=== PATIENT | female | born 1990 | race Caucasian/White ===

== ENCOUNTER 2020-03-23 11:39 | Emergency (ER) | payer OTHER, SELFPAY ==
[2020-03-23 11:44] VITALS: BP 125/70; PULSE 114; RESP 20; TEMP 36.9; O2SAT 100
--- NOTE | 2020-03-23 11:58 | ED.GENADULT ---
HPI - General Adult General Chief complaint: Dental/Oral Stated complaint: tooth pain Time Seen by Provider: 03/23/20 11:58 Source: patient and RN notes reviewed Mode of arrival: ambulatory Limitations: no limitations History of Present Illness HPI narrative: 29-year-old female presents with complaints of right lower dental pain and jaw swelling for 1 day. Sherrie says symptoms continue to increase throughout the morning. Tylenol last 02:00 this morning without relief. Denies any drainage. No fever. Right lower jaw swelling. No neck swelling. No limitation with speaking or swallowing. Has history of dental caries. Has not seen a dentist recently. No dental trauma. No oral lesions. Exacerbating factors consist of chewing on RT side, eating and drinking cold items. No relieving factors. No dentures or bridges. Tolerating liquids well. The patient reports she have not been diagnosed with COVID-19. The patient reports she is not waiting for the results of a COVID-19 lab test. The patient reports she do not have chills, weakness, or fatigue. The patient reports she do not have a new or worsening cough or shortness of breath. Denies chest pain. The patient reports she do not have any rhinorrhea, congestion, sore throat, loss of taste, nausea, vomiting, abdominal pain, and diarrhea. Denies recent traveling. Denies concerns for COVID-19 or exposures been home with limited outdoor exposure except for essential household needs and return home. At this time, patient is not suspected of having COVID-19. Some parts of this dictation were generated by voice recognition software and may contain typographical and/or grammatical inaccuracies. Related Data Home Medications Medication Instructions Recorded Confirmed nortriptyline 10 mg PO TID 03/23/20 03/23/20 Allergies Allergy/AdvReac Type Severity Reaction Status Date / Time cefaclor Allergy Unknown Unknown Verified 03/23/20 11:43 Review of Systems Review of Systems: Narrative: CONSTITUTIONAL: Denies fever, chills, sweats. EYES: Denies visual changes, redness, discharge. ENT: Denies rhinorrhea, congestion, sore throat, otalgia. Complains of RT lower dental pain and swelling. CARDIOVASCULAR: Denies chest pain, palpitations, edema. RESPIRATORY: Denies dyspnea, wheezing, cough. GASTROINTESTINAL: Denies abdominal pain, nausea, vomiting, diarrhea. SKIN: Denies rash or itching. MUSCULOSKELETAL: Denies acute back pain, joint pain, or myalgia. NEUROLOGIC: Denies numbness or focal weakness. PSYCHIATRIC: Denies anxiety or depression. All systems reviewed & are unremarkable except as noted in HPI and below. [facility] Past Medical History Medical History (Updated 03/24/20 @ 00:00 by Kalyani Manley) Brain aneurysm December 26, 2018 delivery delivered Surgical History Surgical History (Updated 03/23/20 @ 12:17 by KAYKAY De Leon) H/O section X3 History of adenoidectomy History of brain surgery Initial brain surgery December 2018, second surgery to replace call April 2019 History of tonsillectomy Family History Family History (Updated 03/23/20 @ 12:18 by KAYKAY De Leon) Father Cystic fibrosis Mother Hypertension Social History Social History (Updated 03/23/20 @ 12:19 by KAYKAY De Leon) Smoking packs per day: 0.5 Smoking cigarettes per day: 10.0 Years smoked: 11 Smoking pack-years: 5.50 Smoking status: Current every day smoker Tobacco type: cigarettes Second hand tobacco smoke exposure: Yes Alcohol intake: current Substance use: never Living arrangements: with family Additional living arrangements comments: spouse and kids Occupation/Education: unemployed Gender identity (if verbalized by the patient): Female Sexual Orientation (if Verbalized by the Patient): Straight or Heterosexual Comments At time of signature, agree with nurse past medical, surgical, social, and family history.
== END 2020-03-23 12:10 | disposition home or self-care (01) ==
PROVIDERS: Emergency Provider Nurse Practitioner Family
DX: K02.9 Dental caries, unspecified (principal); K04.7 Periapical abscess without sinus; F17.210 Nicotine dependence, cigarettes, uncomplicated
CPT/HCPCS: 99213; G0463

== ENCOUNTER 2021-02-17 17:24 | Emergency (ER) | payer OTHER, SELFPAY ==
[2021-02-17 17:29] VITALS: BP 136/79; PULSE 121; RESP 16; TEMP 37.1; O2SAT 100
--- NOTE | 2021-02-17 17:49 | ED.SKABFB ---
HPI - Skin/Abscess/Foreign Bdy General Chief complaint: Skin/Abscess/Foreign Body Stated complaint: left leg pain Time Seen by Provider: 02/17/21 17:43 Source: patient and RN notes reviewed Mode of arrival: ambulatory Limitations: no limitations History of Present Illness HPI narrative: Patient presents today complaining of two insect bites to her left leg, one in the medial thigh and one in the left popliteal fossa that were sustained 3 days ago. States the insect bites itch, but deny pain. She has tried no interventions prior to arrival. MD complaint: insect bite/sting Related Data Home Medications Medication Instructions Recorded Confirmed nortriptyline 10 mg PO TID 03/23/20 03/23/20 Allergies Allergy/AdvReac Type Severity Reaction Status Date / Time cefaclor Allergy Unknown Unknown Verified 03/23/20 11:43 Review of Systems Review of Systems: CONSTITUTIONAL: Denies body aches, fever, chills, or sweats. EYES: Denies visual changes, redness, or discharge. ENT: Denies rhinorrhea, congestion, sore throat, or otalgia. CARDIOVASCULAR: Denies chest pain, palpitations, or edema. RESPIRATORY: Denies cough or dyspnea. GASTROINTESTINAL: Denies abdominal pain, nausea, vomiting, or diarrhea. GENITOURINARY: Denies dysuria or hematuria. SKIN: Insect bites to the left leg MUSCULOSKELETAL: Denies back pain, joint pain, or myalgia. NEUROLOGIC: Denies headache, numbness, tingling, or weakness. PSYCH: Denies depression or anxiety. [facility] Past Medical History Medical History Brain aneurysm December 26, 2018 delivery delivered Surgical History Surgical History H/O section X3 History of adenoidectomy History of brain surgery Initial brain surgery December 2018, second surgery to replace call April 2019 History of tonsillectomy Family History Family History Father Cystic fibrosis Mother Hypertension Social History Social History Smoking packs per day: 0.5 Smoking cigarettes per day: 10.0 Years smoked: 11 Smoking pack-years: 5.50 Smoking status: Current every day smoker Tobacco type: cigarettes Second hand tobacco smoke exposure: Yes Alcohol intake: current Substance use: never Additional living arrangements comments: spouse and kids Gender identity (if verbalized by the patient): Female Sexual Orientation (if Verbalized by the Patient): Straight or Heterosexual Comments At time of signature, I have reviewed and agree with nursing past medical, surgical, social and family history unless otherwise noted. Please see nursing chart for further information. There is no relevant family history pertinent to the presenting complaint Exam Narrative: GENERAL: Well-appearing, well-nourished, and in no acute distress. HEAD: Normocephalic, atraumatic. EYES: EOMI. No redness or drainage. Conjunctivae normal. ENT: Mucous membranes pink and moist. NECK: Normal AROM. CHEST: No respiratory distress. EXTREMITIES: Normal range of motion. No edema. SKIN: Warm, dry, no rash. Capillary refill normal. Normal skin turgor. 1 cm round scabbed ecchymotic lesion to the medial thigh without induration or erythema, consistent with insect bite. Similar lesion to the the popliteal fossa. No signs of bacterial infection noted. NEURO: No focal deficits. Alert and oriented x3. Gait steady. PSYCH: Normal affect. No signs of depression or anxiety. Course Vital Signs Vital signs: Vital Signs Temperature 98.8 F 02/17/21 17:29 Pulse Rate 121 H 02/17/21 17:29 Respiratory Rate 16 02/17/21 17:29 Blood Pressure 136/79 02/17/21 17:29 Pulse Oximetry 100 02/17/21 17:29 Temperature 98.8 F 02/17/21 17:29 Pulse Rate 121 H 02/17/21 17:29 R
== END 2021-02-17 17:57 | disposition home or self-care (01) ==
PROVIDERS: Emergency Provider Nurse Practitioner
DX: S70.362A Insect bite (nonvenomous), left thigh, initial encounter (principal); W57.XXXA Bitten or stung by nonvenomous insect and other nonvenomous arthropods, initial encounter; F17.210 Nicotine dependence, cigarettes, uncomplicated
CPT/HCPCS: 99211; G0463

== ENCOUNTER 2021-03-14 09:39 | Emergency (ER) | payer OTHER, SELFPAY ==
[2021-03-14 09:46] VITALS: BP 115/67; PULSE 78; RESP 18; TEMP 36.8; O2SAT 100
--- NOTE | 2021-03-14 10:10 | ED.DENTAL ---
HPI - Dental/Oral General Chief complaint: Dental/Oral Stated complaint: Tooth Pain Source: patient and RN notes reviewed Limitations: no limitations History of Present Illness HPI Narrative: The patient, who is a smoker/drinker, presents with jaw pain. Patient states she has a 1 to 2-day recurrence of several month history of dental discomfort, mostly at the right lower molars. This is now associated with right jaw swelling; no fever, hoarseness, trismus, redness. Symptoms are mild, worse with eating Related Data Home Medications Medication Instructions Recorded Confirmed nortriptyline 10 mg PO TID 03/23/20 03/14/21 metoprolol tartrate 50 mg PO DAILY 03/14/21 03/14/21 Allergies Allergy/AdvReac Type Severity Reaction Status Date / Time cefaclor Allergy Unknown Unknown Verified 03/14/21 09:52 Review of Systems Review of Systems: General/Constitutional: No weight loss,fever Eyes: N0: Redness,discharge Ears/Nose/Throat: No: Epistaxis,ear discharge Respiratory: Denies: Hemoptysis Gastrointestinal: No Vomiting, Bleeding-rectal Skin: No Lumps, eruption Neurologic: No Focal Weakness,Sz Hematologic: Denies: Petechiae/Purpura Psychiatric: No: Suicida ideationl All Other Systems: Reviewed and Negative [facility] Past Medical History Medical History Brain aneurysm December 26, 2018 delivery delivered Surgical History Surgical History H/O section X3 History of adenoidectomy History of brain surgery Initial brain surgery December 2018, second surgery to replace call April 2019 History of tonsillectomy Family History Family History Father Cystic fibrosis Mother Hypertension Social History Social History Smoking packs per day: 0.5 Smoking cigarettes per day: 10.0 Years smoked: 11 Smoking pack-years: 5.50 Smoking status: Current every day smoker Tobacco type: cigarettes Second hand tobacco smoke exposure: Yes Alcohol intake: current Substance use: never Additional living arrangements comments: spouse and kids Gender identity (if verbalized by the patient): Female Sexual Orientation (if Verbalized by the Patient): Straight or Heterosexual Comments At time of signature, agree with nursing past medical, surgical, social and family history. There is no relevant family history pertinent to the presenting complaint Exam Narrative: General Appearance: Well appearing, Conjunctiva clear Ears: External ear normal, Auditory canal normal Nose: Normal nose Mouth/Throat: Normal appearing (with mild right lower jaw swelling), Normal lips, MM moist, Uvula midline (scattered dental caries and fillings,, with rare fracture) Neck: Supple, No adenopathy Respiratory: Airway patent, No respiratory distress, Musculoskeletal: Full ROM, Non tender, Normal strength Skin: Warm, Dry, Normal color Neurological: A&O x3, , Normal affect Course Vital Signs Vital signs: Vital Signs Temperature 98.3 F 03/14/21 09:46 Pulse Rate 78 03/14/21 09:46 Respiratory Rate 18 03/14/21 09:46 Blood Pressure 115/67 03/14/21 09:46 Pulse Oximetry 100 03/14/21 09:46 Temperature 98.3 F 03/14/21 09:46 Pulse Rate 78 03/14/21 09:46 Respiratory Rate 18 03/14/21 09:46 Blood Pressure 115/67 03/14/21 09:46 Pulse Oximetry 100 03/14/21 09:46 Discharge Plan Discharge Clinical Impression: Abscess of jaw, Toothache Patient Disposition: Home, Self-Care Condition: Stable Instructions: Antibiotic Form, Dental Abscess (ED) Additional Instructions: Decrease nortriptyline by half/every other dose when using tramadol Prescriptions: New tramadol 50 mg tablet 50 - 75 mg PO BID PRN (Reason: pain) Qty: 20 RF: 0
== END 2021-03-14 10:15 | disposition home or self-care (01) ==
PROVIDERS: Emergency Provider Emergency Medicine
DX: M27.2 Inflammatory conditions of jaws (principal); F17.210 Nicotine dependence, cigarettes, uncomplicated
CPT/HCPCS: 99213; G0463

== ENCOUNTER 2022-01-17 08:33 | Emergency (ER) | payer OTHER, SELFPAY ==
--- NOTE | 2022-01-17 08:38 | ED.DENTAL ---
HPI - Dental/Oral General Chief complaint: Dental/Oral Stated complaint: infected tooth causing facial swelling Time Seen by Provider: 01/17/22 08:38 Source: patient, family and RN notes reviewed History of Present Illness HPI Narrative: Patient is a 31-year-old female who presents the urgent care with complaints of left-sided facial swelling, left upper dental pain. Patient states that the dental pain started a couple days ago and she woke up with the swelling last night to the left side. Patient has not taken anything [id number] for her symptoms. Denies any fevers, chills, nausea or vomiting. Patient is aware that she has poor dental hygiene however her regular dentist will not touch her due to her on a ruptured aneurysm . Patient states that she has yet to find an oral surgeon. No other acute complaints. No acute distress noted. Patient aware of the plan of care. Some parts of this dictation were generated by voice recognition software and may contain typographical and/or grammatical inaccuracies. Related Data Home Medications Medication Instructions Recorded Confirmed nortriptyline 10 mg capsule 10 mg PO TID 03/23/20 03/14/21 metoprolol tartrate 50 mg tablet 50 mg PO DAILY 03/14/21 03/14/21 Allergies Allergy/AdvReac Type Severity Reaction Status Date / Time cefaclor Allergy Unknown Unknown Verified 01/17/22 08:56 Review of Systems Review of Systems: CONSTITUTIONAL: Denies fever, chills, or sweats. EYES: Denies visual changes, redness, or discharge. ENT: Denies rhinorrhea, congestion, sore throat, or otalgia. Reports of left upper dental pain and facial swelling CARDIOVASCULAR: Denies chest pain, palpitations, or edema. RESPIRATORY: Denies cough or dyspnea. GASTROINTESTINAL: Denies abdominal pain, nausea, vomiting, or diarrhea. GENITOURINARY: Denies dysuria or hematuria. SKIN: Denies rash or itching. MUSCULOSKELETAL: Denies back pain, joint pain, or myalgia. NEUROLOGIC: Denies headache, numbness, or weakness. All other systems reviewed are negative, except as documented in HPI. [facility] Past Medical History Medical History Brain aneurysm December 26, 2018 delivery delivered Surgical History Surgical History H/O section X3 History of adenoidectomy History of brain surgery Initial brain surgery December 2018, second surgery to replace call April 2019 History of tonsillectomy Family History Family History Father Cystic fibrosis Mother Hypertension Social History Social History Smoking packs per day: 0.5 Smoking cigarettes per day: 10.0 Years smoked: 11 Smoking pack-years: 5.50 Smoking status: Current every day smoker Tobacco type: cigarettes Second hand tobacco smoke exposure: Yes Alcohol intake: current Substance use: never Additional living arrangements comments: spouse and kids Gender identity (if verbalized by the patient): Female Sexual Orientation (if Verbalized by the Patient): Straight or Heterosexual Comments At the time of my signature, I reviewed and agree with the nursing past medical, surgical, social, and family history. There is no relevant family history pertinent to the patient complaint. Exam Narrative: GENERAL: This is a well-nourished, well-developed patient, in no apparent distress. HEAD: normocephalic, atraumatic. EYES: PERRL. Sclera clear/white. Vision is grossly intact. EARS: External ears normal, auditory canals clear and without drainage, TMs normal without perforation. Hearing grossly intact. NOSE: External nose normal with no obvious nasal discharge, nares without redness, no rhinorrhea. THROAT: Mucous membranes moist, posterior pharynx clear. Moderate postnasal drainage DENTAL: Mul
[2022-01-17 08:39] VITALS: BP 110/68; PULSE 110; RESP 20; TEMP 36.5; O2SAT 98
== END 2022-01-17 08:58 | disposition home or self-care (01) ==
PROVIDERS: Emergency Provider Nurse Practitioner Family
DX: K04.7 Periapical abscess without sinus (principal); F17.210 Nicotine dependence, cigarettes, uncomplicated
CPT/HCPCS: 99213; G0463

== ENCOUNTER 2022-11-01 11:38 | Emergency (ER) | payer OTHER, SELFPAY ==
--- NOTE | 2022-11-01 11:43 | ED.EAR ---
HPI - Ear Problem General Chief complaint: Ear Stated complaint: left ear pain Time Seen by Provider: 11/01/22 11:43 Source: patient Mode of arrival: ambulatory Limitations: no limitations History of Present Illness HPI Narrative: Sherrie is a 32-year-old female patient presenting to the clinic today with complaints of left ear pain x1 day. She reports no known fever or chills. Denies any nasal drainage or sinus pressure. Related Data Home Medications Medication Instructions Recorded Confirmed nortriptyline 10 mg capsule 10 mg PO TID 03/23/20 11/01/22 metoprolol tartrate 50 mg tablet 50 mg PO DAILY 03/14/21 03/14/21 Allergies Allergy/AdvReac Type Severity Reaction Status Date / Time cefaclor Allergy Unknown Unknown Verified 01/17/22 09:24 Review of Systems Review of Systems: Pertinent positives per HPI. Patient denies any fever, chills, rash, headache, visual changes, dizziness, cough, runny nose, sore throat, shortness of breath, chest pain, palpitations, nausea, vomiting, diarrhea, constipation, abdominal pain, or any urinary issues. [facility] Past Medical History Medical History Brain aneurysm December 26, 2018 delivery delivered Surgical History Surgical History H/O section X3 History of adenoidectomy History of brain surgery Initial brain surgery December 2018, second surgery to replace call April 2019 History of tonsillectomy Family History Family History Father Cystic fibrosis Mother Hypertension Social History Social History Smoking packs per day: 0.5 Smoking cigarettes per day: 10.0 Years smoked: 11 Smoking pack-years: 5.50 Smoking status: Current every day smoker Tobacco type: cigarettes Second hand tobacco smoke exposure: Yes Alcohol intake: current Substance use: never Living arrangements: with family Additional living arrangements comments: spouse and kids Occupation/Education: unemployed Gender identity (if verbalized by the patient): Female Sexual Orientation (if Verbalized by the Patient): Straight or Heterosexual Comments At the time of my signature, I reviewed and agree with the nursing past medical, surgical, social, and family history. There is no relevant family history pertinent to the patient complaint. Exam Narrative: General: Well-developed, well nourished, in no apparent distress Head: Normocephalic, atraumatic Eyes: Pupils equally round and reactive to light bilaterally, EOM intact, sclera and conjunctive clear, no discharge, lids normal Ears: Right tMs intact and clear, left TM intact, mild bulging, congested, ear canals clear, no drainage, grossly hearing normal. Nose: Nares patent, clear discharge, no inflammation, no sinus tenderness. Mouth: Oropharynx without lesions or masses, very poor dentition, MMM. Neck: Supple, trachea midline, no enlargement of anterior or posterior cervical nodes, no thyroid masses or goiter palpable. Cardio: Regular rate and rhythm, s1 and s2 normal, no murmur appreciated. Resp: Clear to auscultation bilaterally anteriorly and posteriorly, no rhonchi, rales, wheezing or rubs Course Course Emergency Course: Portions of this record may have been created with voice recognition software. Level of Care: Express Care Visit Vital Signs Vital signs: Vital signs reviewed Medical Decision Making MDM Narrative Medical decision making narrative: At the time of visit patient is resting comfortably on the exam table. I suspect patient has left eustachian tube dysfunction. Prescription for prednisone was sent to the pharmacy and supportive measures were discussed with the patient she voiced understanding discharge instructions and agrees to
[2022-11-01 11:45] VITALS: BP 129/70; PULSE 100; RESP 16; TEMP 36.7; O2SAT 100
== END 2022-11-01 11:56 | disposition home or self-care (01) ==
PROVIDERS: Emergency Provider Nurse Practitioner Family; PCP Family Medicine
DX: H69.82 Other specified disorders of Eustachian tube, left ear (principal); F17.210 Nicotine dependence, cigarettes, uncomplicated
CPT/HCPCS: 99213; G0463

== ENCOUNTER 2023-05-20 10:28 | Emergency (ER) | payer OTHER, SELFPAY ==
[2023-05-20 10:35] VITALS: BP 117/71; PULSE 100; RESP 18; TEMP 37.2; O2SAT 100
--- NOTE | 2023-05-20 11:12 | ED.URI ---
HPI - URI/Sore Throat General Chief Complaint: Upper Respiratory Infection Stated Complaint: Cough/Headache/Body Aches Time Seen by Provider: 05/20/23 11:12 Source: patient, RN notes reviewed and old records reviewed Mode of arrival: ambulatory Limitations: no limitations History of Present Illness HPI Narrative: 32 year old female who presents to [facility] with complaints of cough for about 1 month duration and has been taking OTC cough medications and has left ear pain which started this morning. Patient reports that she has a headache and body aches since last night. Patient reports no known ill exposure.Patient reports no shortness of breath or any chest pain,reports no known fevers. MD elicited complaint: cough and other (left ear pain,headache and body aches) Pertinent past history: other (tobacco use) Onset (ago): month(s) (1 month cough, headache and body aches last night ear pain this morning) Pain scale (0-10): 5 Able to tolerate fluids by mouth: Yes Treatments prior to arrival: other (cough medication) Related Data Home Medications Medication Instructions Recorded Confirmed aspirin 81 mg capsule 81 mg PO DAILY 05/20/23 05/20/23 nortriptyline 10 mg capsule 10 mg PO TID 05/20/23 05/20/23 Allergies Allergy/AdvReac Type Severity Reaction Status Date / Time cefaclor Allergy Unknown Unknown Verified 05/20/23 10:45 Review of Systems Review of Systems: CONSTITUTIONAL: Reports malaise,no chills, sweats, or fever. EYES: Denies visual changes, redness, or discharge. ENT: Reports rhinorrhea, congestion, sinus pain,left otalgia and sore throat. CARDIOVASCULAR: Denies chest pain, palpitations, or edema. RESPIRATORY: Reports cough.? Denies dyspnea. GASTROINTESTINAL: Denies abdominal pain, nausea, vomiting, diarrhea SKIN: Denies rash or itching. MUSCULOSKELETAL: Reports myalgia. NEUROLOGIC: Reports headache. All systems reviewed & are unremarkable except as noted in HPI and below [facility] Past Medical History Medical History Brain aneurysm December 26, 2018 delivery delivered Surgical History Surgical History H/O section X3 History of adenoidectomy History of brain surgery Initial brain surgery December 2018, second surgery to replace call April 2019 History of tonsillectomy Family History Family History Father Cystic fibrosis Mother Hypertension Social History Social History Smoking packs per day: 0.5 Smoking cigarettes per day: 10.0 Years smoked: 11 Smoking pack-years: 5.50 Smoking status: Current every day smoker Tobacco type: cigarettes Second hand tobacco smoke exposure: Yes Alcohol intake: current Substance use: never Living arrangements: with family Additional living arrangements comments: spouse and kids Occupation/Education: unemployed Gender identity (if verbalized by the patient): Female Sexual Orientation (if Verbalized by the Patient): Straight or Heterosexual Comments At time of signature, agree with nursing past medical, surgical, social and family history. There is no relevant family history pertinent to the presenting complaint Exam Narrative: GENERAL: Well-appearing, well-nourished, and in no acute distress. HEAD: Normocephalic EYES: PERRLA, conjunctivae clear ENT: Nares clear, turbinates edematous and erythematous, clear discharge. Mucous membranes moist. TM pearly titus with dull light reflex bilaterally; no tragal tenderness. Oropharynx erythematous without lesions. Tonsils not present andthroat without exudate, no drooling, no hoarseness, no trismus, uvula midline.post nasal drainage. NECK: Supple. No lymphadenopathy CHEST: Clear to auscultation, breath sounds equal. No wheezing, rhonchi
== END 2023-05-20 11:45 | disposition home or self-care (01) ==
PROVIDERS: Emergency Provider Registered Nurse
DX: U07.1 COVID-19 (principal); F17.210 Nicotine dependence, cigarettes, uncomplicated
CPT/HCPCS: 87426; 87804; 99213; C9803; G0463

== ENCOUNTER 2023-07-16 08:37 | Emergency (ER) | payer OTHER, SELFPAY ==
[2023-07-16 08:42] VITALS: BP 127/73; PULSE 92; RESP 14; TEMP 36.6; O2SAT 100
[2023-07-16 08:45] VITALS: BP 127/73; PULSE 92; RESP 14; TEMP 36.6; O2SAT 100
--- NOTE | 2023-07-16 09:26 | ED.URI ---
HPI - URI/Sore Throat General Chief Complaint: Upper Respiratory Infection Stated Complaint: cough/congestion/chest tight History of Present Illness HPI Narrative: Pt is a 32 y/o female, presents to with 24 hour hx of sinus pressure, nasal congestion and a dry cough that is causing burning in the chest. she denies known fevers or chills, she has no chest pain when she is not coughing. she denies orthopnea, lower extremity edema or palpitations, no hx of PE or DVT, she is not taking any OTC medications for symptom relief. She has no known sick contacts or COV 19 exposures. She is not . Related Data Home Medications Medication Instructions Recorded Confirmed nortriptyline 10 mg capsule 10 mg PO TID 05/20/23 05/20/23 Allergies Allergy/AdvReac Type Severity Reaction Status Date / Time cefaclor Allergy Unknown Unknown Verified 05/20/23 10:45 Review of Systems ENT: Comments: refer to HPI Respiratory: Comments: refer to HPI PMFSH Past Medical History Medical History Brain aneurysm December 26, 2018 delivery delivered Surgical History Surgical History H/O section X3 History of adenoidectomy History of brain surgery Initial brain surgery December 2018, second surgery to replace call April 2019 History of tonsillectomy Family History Family History Father Cystic fibrosis Mother Hypertension Social History Social History Smoking packs per day: 0.5 Smoking cigarettes per day: 10.0 Years smoked: 11 Smoking pack-years: 5.50 Smoking status: Current every day smoker Tobacco type: cigarettes Second hand tobacco smoke exposure: Yes Alcohol intake: current Substance use: never Living arrangements: with family Additional living arrangements comments: spouse and kids Occupation/Education: unemployed Gender identity (if verbalized by the patient): Female Sexual Orientation (if Verbalized by the Patient): Straight or Heterosexual Exam Const: General: healthy appearing, no acute distress and alert Nutritional Appearance: well nourished Orientation/consciousness: patient oriented x3 Limitations: no limitations HENMT: Head: normal to inspection Ears: external ears normal and TM abnormal (serous pattern bilaterally ) Face/Nose/Sinus: Normal external nose present and Normal nares present Face and sinus: normal facial exam and sinuses nontender Mouth: Yes Normal oral and palatal mucosa present and Yes lip normal Throat: posterior oropharynx normal and uvula midline Other: poor dentition Eyes: Conjunctivae: conjunctivae normal Pupils: Equal, round and reactive pupils present EOM: EOMs intact bilaterally Neck: Neck: normal visual inspection, no lymphadenopathy and no meningeal signs Resp: Effort & Inspection: normal respiratory effort Auscultation: clear to auscultation bilaterally Cardio: Rate: regular rate Rhythm: regular rhythm Skin: General skin exam: normal color Rashes: no rashes Wounds: no wounds Neuro: General: patient oriented x3, moves all extremities, no meningeal signs, no focal motor deficits and CN's II-XI intact bilaterally Course Course Emergency Course: Pt's exam is consistent with viral URI, she is afebrile and declines screening for influenza or COV 19. Plan to treat with short steroid course, cough suppressant and inhaler for added relief. Pt is agreeable with plan. Level of Care: Express Care Visit (04104) Vital Signs Vital signs: Vital Signs Temperature 36.6 C 07/16/23 08:42 Pulse Rate 92 07/16/23 08:42 Respiratory Rate 14 07/16/23 08:42 Blood Pressure 127/73 07/16/23 08:42 Pulse Oximetry 100 07/16/23 08:42 Oxygen Delivery Room Air 07/16/23 08:42 Temperatur
== END 2023-07-16 09:39 | disposition home or self-care (01) ==
PROVIDERS: Emergency Provider Nurse Practitioner Family
DX: M94.0 Chondrocostal junction syndrome [Tietze] (principal); J06.9 Acute upper respiratory infection, unspecified; F17.210 Nicotine dependence, cigarettes, uncomplicated
CPT/HCPCS: 99213; G0463

== ENCOUNTER 2023-07-30 11:42 | Emergency (ER) | payer OTHER, SELFPAY ==
[2023-07-30 11:54] VITALS: BP 112/66; PULSE 103; RESP 16; TEMP 36.9; O2SAT 100
--- NOTE | 2023-07-30 12:47 | ED.URI ---
HPI - URI/Sore Throat General Chief Complaint: Upper Respiratory Infection Stated Complaint: left ear/throat Time Seen by Provider: 07/30/23 12:26 Source: patient, RN notes reviewed and old records reviewed Mode of arrival: ambulatory Limitations: no limitations History of Present Illness HPI Narrative: 32 year old female presents to [facility] care accompanied by son who is also [place] with complaints of having left ear pain ans sore throat which started today. Patient reports that she has not had any known fevers chills or sweats or any body aches, She states that she has not taken any OTC medications for her symptoms. MD elicited complaint: sore throat and other (left ear pain) Onset (ago): day(s) (this morning) Pain scale (0-10): 6 Able to tolerate fluids by mouth: Yes Treatments prior to arrival: none Related Data Home Medications Medication Instructions Recorded Confirmed nortriptyline 10 mg capsule 10 mg PO TID 05/20/23 05/20/23 Allergies Allergy/AdvReac Type Severity Reaction Status Date / Time cefaclor Allergy Unknown Unknown Verified 05/20/23 10:45 Review of Systems Review of Systems: CONSTITUTIONAL: Denies malaise, chills, sweats, or fever. EYES: Denies visual changes, redness, or discharge. ENT: Reports rhinorrhea, congestion, sinus pain, left otalgia and sore throat. CARDIOVASCULAR: Denies chest pain, palpitations, or edema. RESPIRATORY: Reports no cough.? Denies dyspnea. GASTROINTESTINAL: Denies abdominal pain, nausea, vomiting, diarrhea SKIN: Denies rash or itching. MUSCULOSKELETAL: Denies myalgia. NEUROLOGIC: Denies headache. All systems reviewed & are unremarkable except as noted in HPI and below PMFSH Past Medical History Medical History (Updated 07/31/23 @ 10:28 by Shannon Roy NP) Anxiety Brain aneurysm December 26, 2018 delivery delivered Hx of migraines Surgical History Surgical History H/O section X3 History of adenoidectomy History of brain surgery Initial brain surgery December 2018, second surgery to replace call April 2019 History of tonsillectomy Family History Family History Father Cystic fibrosis Mother Hypertension Social History Social History Smoking packs per day: 0.5 Smoking cigarettes per day: 10.0 Years smoked: 11 Smoking pack-years: 5.50 Smoking status: Current every day smoker Tobacco type: cigarettes Second hand tobacco smoke exposure: Yes Alcohol intake: current Substance use: never Living arrangements: with family Additional living arrangements comments: spouse and kids Occupation/Education: unemployed Gender identity (if verbalized by the patient): Female Sexual Orientation (if Verbalized by the Patient): Straight or Heterosexual Comments At time of signature, agree with nursing past medical, surgical, social and family history. There is no relevant family history pertinent to the presenting complaint Exam Narrative: GENERAL: Well-appearing, well-nourished, and in no acute distress. HEAD: Normocephalic EYES: PERRLA, conjunctivae clear ENT: Nares clear, turbinates edematous and erythematous, clear discharge. Mucous membranes moist. TM pearly titus with dull light reflex bilaterally; no tragal tenderness. Oropharynx erythematous without lesions. Tonsils not present and throat without exudate, no drooling, no hoarseness, no trismus, uvula midline.some post nasal drainage NECK: Supple. No lymphadenopathy CHEST: Clear to auscultation, breath sounds equal. No wheezing, rhonchi, rales, or stridor. No respiratory distress, speaks in full sentences.SAO2 100% on room air HEART: Regular rate and rhythm. No murmur heard. SKIN: Warm, dry, no rash. NEURO: Alert and oriented x3. PSYCH: Normal mood and affect
== END 2023-07-30 12:53 | disposition home or self-care (01) ==
PROVIDERS: Emergency Provider Registered Nurse
DX: J02.0 Streptococcal pharyngitis (principal); F17.210 Nicotine dependence, cigarettes, uncomplicated
CPT/HCPCS: 87880; 99213; G0463

== ENCOUNTER 2023-12-01 14:30 | Emergency (ER) | payer OTHER, SELFPAY ==
--- NOTE | 2023-12-01 14:47 | ED.DENTAL ---
HPI - Dental/Oral General Chief complaint: Dental/Oral Stated complaint: Tooth pain Source: patient Mode of arrival: ambulatory History of Present Illness HPI Narrative: 33 y/o female presented for c/o right lower dental pain for over 3 weeks. Pt was seen at the onset in ER, given PCN, toradol, licodaine, and steroid for the pain. She says the antibiotic helps. Since then she has continued to have pain to the site, worse at night. Described as sharp stabbing and says the jaw will swell at times. Taking Tylenol without improvement. States she needs all teeth extracted but dentists are hesitant due to her aneurysm history. MD Complaint: tooth pain Related Data Allergies Allergy/AdvReac Type Severity Reaction Status Date / Time cefaclor Allergy Unknown Unknown Verified 05/20/23 10:45 Review of Systems Review of Systems: CONSTITUTIONAL: Denies body aches, fever, chills ENT: Denies rhinorrhea, congestion, sore throat, or otalgia. Reports dental pain CARDIOVASCULAR: Denies chest pain, palpitations RESPIRATORY: Denies cough or dyspnea. SKIN: Denies rash, itching, or wounds. MUSCULOSKELETAL: Denies myalgia. NEUROLOGIC: Denies headache, numbness, tingling, or weakness. [facility] Past Medical History Medical History Anxiety Brain aneurysm December 26, 2018 delivery delivered Hx of migraines Surgical History Surgical History H/O section X3 History of adenoidectomy History of brain surgery Initial brain surgery December 2018, second surgery to replace call April 2019 History of tonsillectomy Family History Family History Father Cystic fibrosis Mother Hypertension Social History Social History Smoking packs per day: 0.5 Smoking cigarettes per day: 10.0 Years smoked: 11 Smoking pack-years: 5.50 Smoking status: Current every day smoker Tobacco type: cigarettes Second hand tobacco smoke exposure: Yes Alcohol intake: current Substance use: never Living arrangements: with family Additional living arrangements comments: spouse and kids Occupation/Education: unemployed Gender identity (if verbalized by the patient): Female Sexual Orientation (if Verbalized by the Patient): Straight or Heterosexual Comments At time of signature, I have reviewed and agree with nursing past medical, surgical, social and family history unless otherwise noted. Please see nursing chart for further information. There is no relevant family history pertinent to the presenting complaint Exam Narrative: GENERAL: Appears in pain; no acute distress. HEAD: Normocephalic, atraumatic. EYES: EOMI. No redness or drainage. Conjunctivae normal. ENT: Dental pain location of #29, broken tooth tender gumline, minimal swelling, no drainage; poor dentition throughout multiple broken teeth and caries. Mucous membranes pink and moist. TMs normal bilaterally. Throat normal. Uvula midline. no dysphagia, odynophagia, dysphonia, or dyspnea NECK: Normal AROM. No lymphadenopathy. no induration below mandible, no neck pain. CHEST: No respiratory distress. Clear to auscultation. HEART: Regular rate and rhythm. SKIN: Warm, dry, no rash. Normal skin turgor. NEURO: No focal deficits. Alert and oriented x3. Gait steady. Course Course Emergency Course: Patient is aware of diagnosis, understands and agrees to treatment plan. Anticipatory guidance given. Patient agrees to follow-up as directed and is aware of reasons to seek care at the emergency department. Portions of this record may have been created with voice recognition software Level of Care: Express Care Visit Vital Signs Vital signs: Vital Signs Temperature 98.4 F 12/01/23 14:48 Pulse Rate 92 12/01/23 14:48 Respiratory
[2023-12-01 14:48] VITALS: BP 127/81; PULSE 92; RESP 16; TEMP 36.9; O2SAT 99
== END 2023-12-01 15:17 | disposition home or self-care (01) ==
PROVIDERS: Emergency Provider Nurse Practitioner Family
DX: K08.89 Other specified disorders of teeth and supporting structures (principal); F17.210 Nicotine dependence, cigarettes, uncomplicated
CPT/HCPCS: 99213; G0463

== ENCOUNTER 2024-01-21 08:20 | Emergency (ER) | payer OTHER, SELFPAY ==
[2024-01-21 08:27] VITALS: BP 130/77; PULSE 91; RESP 16; TEMP 36.6; O2SAT 100
--- NOTE | 2024-01-21 08:34 | ED.URI ---
HPI - URI/Sore Throat General Chief Complaint: Upper Respiratory Infection Stated Complaint: Sore Throat Time Seen by Provider: 01/21/24 08:53 Source: patient and RN notes reviewed Mode of arrival: ambulatory Limitations: no limitations History of Present Illness HPI Narrative: 33-year-old female presents with concern for nasal congestion for 10 days, sore throat that started Friday. She denies taking any medications for her symptoms. Reports general malaise. Denies fever. Denies known sick contacts. MD elicited complaint: sore throat, nasal congestion and sinus pain Related Data Allergies Allergy/AdvReac Type Severity Reaction Status Date / Time cefaclor Allergy Unknown Unknown Verified 05/20/23 10:45 Review of Systems Review of Systems: CONSTITUTIONAL: Reports malaise. Denies chills, sweats, or fever. EYES: Denies visual changes, redness, or discharge. ENT: Reports rhinorrhea, congestion, sinus pain, and sore throat. CARDIOVASCULAR: Denies chest pain, palpitations, or edema. RESPIRATORY: Denies cough. Denies dyspnea. GASTROINTESTINAL: Denies abdominal pain, nausea, vomiting, diarrhea SKIN: Denies rash or itching. MUSCULOSKELETAL: Denies myalgia. NEUROLOGIC: Denies headache. All systems reviewed & are unremarkable except as noted in HPI and below PMFSH Past Medical History Medical History Anxiety Brain aneurysm December 26, 2018 delivery delivered Hx of migraines Surgical History Surgical History H/O section X3 History of adenoidectomy History of brain surgery Initial brain surgery December 2018, second surgery to replace call April 2019 History of tonsillectomy Family History Family History Father Cystic fibrosis Mother Hypertension Social History Social History Smoking packs per day: 0.5 Smoking cigarettes per day: 10.0 Years smoked: 11 Smoking pack-years: 5.50 Smoking status: Current every day smoker Tobacco type: cigarettes Second hand tobacco smoke exposure: Yes Alcohol intake: current Substance use: never Living arrangements: with family Additional living arrangements comments: spouse and kids Occupation/Education: unemployed Gender identity (if verbalized by the patient): Female Sexual Orientation (if Verbalized by the Patient): Straight or Heterosexual Comments At time of signature, agree with nursing past medical, surgical, social and family history. There is no relevant family history pertinent to the presenting complaint Exam Narrative: GENERAL: Nontoxic-appearing, well-nourished, and in no acute distress. HEAD: Normocephalic EYES: PERRLA, conjunctivae clear ENT: Nares clear, turbinates edematous and erythematous. Mucous membranes moist. TM pearly titus with dull light reflex bilaterally; no tragal tenderness. Oropharynx erythematous without lesions. Tonsils not enlarged and without exudate, no drooling, no hoarseness, no trismus, uvula midline. NECK: Supple. No lymphadenopathy CHEST: Clear to auscultation, breath sounds equal. No wheezing, rhonchi, rales, or stridor. No respiratory distress, speaks in full sentences. HEART: Regular rate and rhythm. No murmur heard. SKIN: Warm, dry, no rash. NEURO: Alert and oriented x3. PSYCH: Normal mood and affect Course Course Emergency Course: Patient is aware of diagnosis, understands and agrees to treatment plan. Anticipatory guidance given. Patient agrees to follow-up as directed and is aware of reasons to seek care at the emergency department. Portions of this record may have been created with voice recognition software Level of Care: Express Care Visit Vital Signs Vital signs: Vital Signs Temperature 97.8 F 01/21/24 08:27 Pulse Rate 91 01/21/24 08:27 Re
[2024-01-21 09:10] LABS: EDSTREPNEGPOS1 Negative
== END 2024-01-21 09:21 | disposition home or self-care (01) ==
PROVIDERS: Emergency Provider Nurse Practitioner
DX: J01.90 Acute sinusitis, unspecified (principal); F17.210 Nicotine dependence, cigarettes, uncomplicated
CPT/HCPCS: 87081; 87880; 99213; G0463